=== PATIENT | female | born 1970 | race Caucasian/White ===

== ENCOUNTER 2024-03-27 08:17 | Outpatient (CLI) | payer BC, SELFPAY ==
--- NOTE | ~2024-03-27 | MMUS_ITS ---
EXAMINATION: MM diagnostic farhana BI w mariah, US breast LT limited HISTORY: Left breast pain/lump TECHNIQUE: 3-D tomosynthesis images of the breasts were performed and synthetic 2-D images were gener ated. CAD analysis was submitted and interpreted. High resolution limited left breast ultrasound was performed. COMPARISON: None BREAST PARENCHYMAL COMPOSITION:Not Dense. The breasts are almost entirely fatty FINDINGS: MAMMOGRAPHIC FINDINGS: Frontal pattern of the breast is unremarkable. No mass lesion or insertion seen. No suspicious microc alcifications. ULTRASOUND: Sonographic imaging performed at 6:00 position left breast. No solid or cystic lesion seen. No sonogr aphic abnormality seen in the region scanned. IMPRESSION: No evidence for malignancy. No mammographic or sonographic correlate seen for the area of concern at the 6:00 position left breast. BI-RADS Category 1: Negative Reviewed, dictated and finalized at [facility]. IMPRESSION: No evidence for malignancy. No mammographic or sonographic correlate seen for the area of concern at the 6:00 position left breast. BI-RADS Category 1: Negative
== END 2024-03-27 08:18 | disposition home or self-care (01) ==
LOC: MICIMG 08:19
PROVIDERS: PCP Family Medicine; Visit Provider Family Medicine
DX: N63.25 Unspecified lump in the left breast, overlapping quadrants (principal)
CPT/HCPCS: 76642; 77062; 77066; G0279